=== PATIENT | male | born 1970 | race Hispanic/Latino ===

== ENCOUNTER 2020-07-14 09:44 | Emergency (ER) | payer BC ==
[~2020-07-14] VITALS: Ht 165.1 cm; Wt 106.6 kg
[2020-07-14] MEDS: ONDANSETRON HCL 4 MG ORAL DISINTEGRATING TAB PO ONE (10:27)
[2020-07-14] MEDS ORDERED: PROCHLORPERAZINE MALEATE TAB 10 MG TAB PO PRN (10:30)
[2020-07-14] MEDS ORDERED: ZOFRAN4 MG SL (10:33)
[2020-07-14] MEDS ORDERED: COMPAZINE25 MG PO (10:33)
== END 2020-07-14 10:45 | disposition home or self-care (01) ==
LOC: ER 10:30
DX: U07.1 COVID-19 (principal); R06.6 Hiccough; I10 Essential (primary) hypertension
CPT/HCPCS: 99283; Q0162